=== PATIENT | female | born 1935 | race Two or more races ===

== ENCOUNTER 2022-05-14 08:39 | Outpatient (CLI) | payer MEDICARE, OTHER, SELFPAY ==
[2022-05-14 18:40] LABS: Alanine Aminotransferase 38 U/L (6-35); Albumin Level 4.3 g/dL (3.5-5.1); Alkaline Phosphatase 70 U/L (38-126); Anion Gap 2 mmol/L (8-16); Aspartate Amino Transferase 52 U/L (14-36); Bilirubin,Total 1.4 mg/dL (0.2-1.3); Blood Urea Nitrogen 14 mg/dL (7-17); Calcium 9.4 mg/dL (8.4-10.2); Carbon Dioxide 36 mmol/L (22-30); Chloride 104 mmol/L (98-107); Cholesterol 237 mg/dL (0-200); Estimated Glomerular Filt Rate > 60; Glucose 90 mg/dL (65-110); HDL Direct 84 mg/dL; Potassium 4.6 mmol/L (3.4-5.0); Sodium 142 mmol/L (137-145); Triglycerides 129 mg/dL (<150)
[2022-05-14 18:43] LABS: Basophils Absolute Auto 0.1 K/mm3 (0.0-0.1); Basophils Percent Auto 1.2 % (0.2-1.2); Eosinophils Absolute Auto 0.1 K/mm3 (0-0.3); Eosinophils Percent Auto 1.4 % (0-4.4); Hematocrit 45.7 % (37.0-47.0); Hemoglobin 14.5 g/dL (12.0-15.0); Immature Granulocyte Absolute 0.01 K/mm3 (0.00-0.031); Immature Granulocyte Percent A 0.2 % (0-0.5); Lymphocytes Absolute Auto 1.62 K/mm3 (0.9-3.2); Lymphocytes Percent Auto 38.4 % (18.3-44.2); Mean Corpuscular HGB Conc 31.7 g/dl (32-36); Mean Corpuscular Hemoglobin 30.8 pg (26-34); Mean Platelet Volume 11.7 fl (7.4-10.4); Monocytes Absolute Auto 0.4 K/mm3 (0.1-0.6); Monocytes Percent Auto 9.5 % (2.6-8.5); Neutrophils Absolute Auto 2.1 K/mm3 (1.3-6.7); Neutrophils Percent Auto 49.3 % (45.5-73.1); Platelet Count Result 129 k/mm3 (150-375); Red Blood Count 4.71 M/mm3 (4.2-5.4); Red Cell Distribution Width 13.1 % (11.5-14.5); White Blood Count 4.2 K/mm3 (4.5-10.0)
[2022-05-14 18:52] LABS: LDL Cholesterol Direct 95 mg/dL
[2022-05-14 19:16] LABS: Vitamin D 25 Hydroxy 46.2 ng/mL
[2022-05-15 08:38] LABS: Free T4 Free Thyroxine Reflex 0.62 ng/dL (0.78-2.19)
== END 2022-05-14 08:40 | disposition home or self-care (01) ==
LOC: ANHGOSHLAB 08:41
PROVIDERS: PCP Family Medicine; Visit Provider Family Medicine
DX: E78.5 Hyperlipidemia, unspecified (principal); I10 Essential (primary) hypertension; E55.9 Vitamin D deficiency, unspecified; E53.8 Deficiency of other specified B group vitamins; F41.9 Anxiety disorder, unspecified
CPT/HCPCS: 36415; 80053; 80061; 82306; 82607; 84439; 84443; 85025

== ENCOUNTER 2022-07-11 14:09 | Outpatient (CLI) | payer MEDICARE, OTHER, SELFPAY ==
[2022-07-11 15:22] LABS: Alanine Aminotransferase 37 U/L (6-35); Albumin Level 4.2 g/dL (3.5-5.1); Alkaline Phosphatase 58 U/L (38-126); Anion Gap 5 mmol/L (8-16); Aspartate Amino Transferase 51 U/L (14-36); Bilirubin,Total 0.9 mg/dL (0.2-1.3); Blood Urea Nitrogen 14 mg/dL (7-17); Calcium 8.5 mg/dL (8.4-10.2); Carbon Dioxide 31 mmol/L (22-30); Chloride 105 mmol/L (98-107); Estimated Glomerular Filt Rate > 60; Glucose 72 mg/dL (65-110); Potassium 3.9 mmol/L (3.4-5.0); Sodium 141 mmol/L (137-145)
[2022-07-15 05:43] LABS: Thyroid Peroxidase Antibodies 1668 IU/mL (<9)
[2022-07-16 05:56] LABS: Triiodothyronine T3 Free 2.3 pg/mL (2.3-4.2)
== END 2022-07-11 14:10 | disposition home or self-care (01) ==
PROVIDERS: PCP Family Medicine; Visit Provider Internal Medicine Endocrinology, Diabetes & Metabolism
DX: E03.9 Hypothyroidism, unspecified (principal); F41.9 Anxiety disorder, unspecified; R74.8 Abnormal levels of other serum enzymes; E04.9 Nontoxic goiter, unspecified; I47.1 Supraventricular tachycardia
CPT/HCPCS: 36415; 80053; 84439; 84443; 84481; 86376

== ENCOUNTER 2022-09-01 08:31 | Outpatient (CLI) | payer MEDICARE, OTHER, SELFPAY ==
--- NOTE | 2022-09-01 | ECHOL_ITS ---
Patient Info Name: Juan A Bolanos Age: 87 years : 1935 Gender: Female Ht: 62 in Wt: 115 lbs BSA: 1.51 m2 HR: 69 bpm BP: 180 / 100 mmHg Technical Quality: Good Exam Date: 09/01/2022 9:11 AM Exam Location: [facility] Patient Status: Outpatient Admit Date: 09/01/2022 Staff Ordering Physician: Lora Ruvalcaba MD Screening Tech: Starla De Leon RDCS Attending Provider: Lora Ruvalcaba MD Exam Type: CA echo limited Study Info Indications - EVALUATE EJECTION FRACTION I10 - Essential (primary) hypertension Limited two-dimensional transthoracic echocardiogram is performed. Summary 1. Limited echocardiogram to assess ejection fraction. 2. Left ventricular chamber dimension is normal. 3. Left ventricular systolic function is normal, estimated at 65-70%. 4. The left ventricular diastolic function is indeterminate as it was not assessed.. Left Ventricle The left ventricular diastolic function is indeterminate as it was not assessed.. Limited echocardiogram to assess ejection fraction. Left ventricular chamber dimension is normal. Left ventricular systolic function is normal, estimated at 65-70%. Ventricles Name Value Normal LV Dimensions 2D/MM IVS Diastolic Thickness (2D) 0.9 cm 0.6-1.0 IVS Diastole Thickness (MM) 0.4 cm 0.6-0.9 LVID Diastole (2D) 4.0 cm 3.8-5.2 LVID Diastole (MM) 4.4 cm 3.8-5.2 LVIW Diastolic Thickness (2D) 0.9 cm 0.6-0.9 LVIW Diastolic Thickness (MM) 0.7 cm 0.6-0.9 LVID Systole (2D) 2.6 cm 2.2-3.5 LVID Systole (MM) 2.5 cm 2.2-3.5 LV Mass (2D Cubed) 114.06 g 67.00-162.00 LV Mass Index (2D Cubed) 75 g/m2 43-95 Relative Wall Thickness (2D) 0.45 LV Mass (MM Cubed) 73.02 g 67.00-162.00 LV Mass Index (MM Cubed) 48 g/m2 43-95 Relative Wall Thickness (MM) 0.34 LV Fractional Shortening/Ejection Fraction 2D/MM LV Fractional Shortening (2D) 37 % 27-45 LV Fractional Shortening (MM) 43 % 27-45 LV EF (MM Teicholz) 74 % 54-74 LV EF (2D Teicholz) 67 % 54-74 LV Diastolic Volume (4C MOD) 43 ml LV EF (4C MOD) 66 % LV Diastolic Volume (2C MOD) 42 ml LV EF (2C MOD) 57 % LV Diastolic Volume (BP MOD) 43 ml 46-106 LV Diastolic Volume Index (BP MOD) 28 ml/m2 29-61 LV Systolic Volume (BP MOD) 16 ml 14-42 LV Systolic Volume Index (BP MOD) 11 ml/m2 8-24 LV EF (BP MOD) 61 % 54-74 LV Diastolic Length (4C) 6.1 cm LV Systolic Length (4C) 5.2 cm LV Stroke Volume (4C MOD) 28 ml EchoPAC Name Value Normal
== END 2022-09-01 08:32 | disposition home or self-care (01) ==
LOC: ANHCARD 08:31
PROVIDERS: PCP Family Medicine; Visit Provider Internal Medicine Endocrinology, Diabetes & Metabolism
DX: Z13.6 Encounter for screening for cardiovascular disorders (principal); I10 Essential (primary) hypertension
CPT/HCPCS: 93308

== ENCOUNTER 2023-02-05 11:26 | Outpatient (CLI) | payer MEDICARE, OTHER, SELFPAY ==
[2023-02-05 16:48] LABS: Alanine Aminotransferase 34 U/L (6-35); Alkaline Phosphatase 72 U/L (38-126); Anion Gap 10 mmol/L (8-16); Aspartate Amino Transferase 69 U/L (14-36); Blood Urea Nitrogen 14 mg/dL (7-17); Calcium 9.3 mg/dL (8.4-10.2); Carbon Dioxide 24 mmol/L (22-30); Chloride 108 mmol/L (98-107); Estimated Glomerular Filt Rate > 60; Glucose 126 mg/dL (65-110); Potassium 3.6 mmol/L (3.4-5.0); Sodium 142 mmol/L (137-145)
== END 2023-02-05 11:27 | disposition home or self-care (01) ==
LOC: ANHWCLAB 11:27
PROVIDERS: PCP Family Medicine; Visit Provider Internal Medicine Endocrinology, Diabetes & Metabolism
DX: I10 Essential (primary) hypertension (principal); I47.10 Supraventricular tachycardia, unspecified; E03.9 Hypothyroidism, unspecified
CPT/HCPCS: 36415; 80053; 84439; 84443

== ENCOUNTER 2023-03-16 10:27 | Outpatient (CLI) | payer MEDICARE, OTHER, SELFPAY ==
[2023-03-16 16:03] LABS: Free T4 Free Thyroxine 0.64 ng/mL (0.78-2.19)
== END 2023-03-16 10:28 | disposition home or self-care (01) ==
LOC: ANHWCLAB 10:28
PROVIDERS: PCP Family Medicine; Visit Provider Nurse Practitioner Family
DX: E03.9 Hypothyroidism, unspecified (principal)
CPT/HCPCS: 36415; 84439; 84443

== ENCOUNTER 2023-05-28 09:51 | Outpatient (CLI) | payer MEDICARE, OTHER, SELFPAY ==
[2023-05-28 13:44] LABS: Basophils Percent Auto 0.9 % (0.2-1.2); Eosinophils Absolute Auto 0.1 K/mm3 (0-0.3); Eosinophils Percent Auto 1.6 % (0-4.4); Hematocrit 41.3 % (37.0-47.0); Hemoglobin 13.1 g/dL (12.0-15.0); Immature Granulocyte Absolute 0.01 K/mm3 (0.00-0.031); Immature Granulocyte Percent A 0.2 % (0-0.5); Lymphocytes Absolute Auto 1.22 K/mm3 (0.9-3.2); Lymphocytes Percent Auto 28.3 % (18.3-44.2); Mean Corpuscular HGB Conc 31.7 g/dl (32-36); Mean Corpuscular Hemoglobin 31.3 pg (26-34); Mean Corpuscular Volume 98.6 fl (80-100); Mean Platelet Volume 11.8 fl (7.4-10.4); Monocytes Absolute Auto 0.4 K/mm3 (0.1-0.6); Monocytes Percent Auto 8.1 % (2.6-8.5); Neutrophils Absolute Auto 2.6 K/mm3 (1.3-6.7); Neutrophils Percent Auto 60.9 % (45.5-73.1); Platelet Count Result 115 k/mm3 (150-375); Red Blood Count 4.19 M/mm3 (4.2-5.4); White Blood Count 4.3 K/mm3 (4.5-10.0)
[2023-05-28 14:43] LABS: Vitamin D 25 Hydroxy 31.1 ng/mL
[2023-05-28 19:26] LABS: Alanine Aminotransferase 29 U/L (6-35); Albumin Level 4.4 g/dL (3.5-5.1); Alkaline Phosphatase 67 U/L (38-126); Anion Gap 7 mmol/L (4-12); Aspartate Amino Transferase 64 U/L (14-36); Bilirubin,Total 1.1 mg/dL (0.2-1.3); Blood Urea Nitrogen 13 mg/dL (7-17); Calcium 9.4 mg/dL (8.4-10.2); Carbon Dioxide 28 mmol/L (22-30); Chloride 109 mmol/L (98-107); Cholesterol 190 mg/dL (0-200); Estimated Glomerular Filt Rate > 60; Glucose 93 mg/dL (65-110); HDL Direct 69 mg/dL; Potassium 4.7 mmol/L (3.4-5.0); Sodium 144 mmol/L (137-145); Triglycerides 97 mg/dL (<150)
[2023-05-28 19:36] LABS: LDL Cholesterol Direct 91 mg/dL
== END 2023-05-28 09:52 | disposition home or self-care (01) ==
LOC: ANHGOSHLAB 09:53
PROVIDERS: PCP Family Medicine; Visit Provider Family Medicine
DX: E78.5 Hyperlipidemia, unspecified (principal); I10 Essential (primary) hypertension; E53.8 Deficiency of other specified B group vitamins; E55.9 Vitamin D deficiency, unspecified
CPT/HCPCS: 36415; 80053; 80061; 82306; 82607; 85025

== ENCOUNTER 2023-10-02 10:19 | Outpatient (CLI) | payer MEDICARE, OTHER, SELFPAY ==
[2023-10-02 11:59] LABS: Free T4 Free Thyroxine 0.78 ng/mL (0.78-2.19); Vitamin D 25 Hydroxy 40.9 ng/mL
== END 2023-10-02 10:20 | disposition home or self-care (01) ==
PROVIDERS: PCP Family Medicine; Visit Provider Internal Medicine Endocrinology, Diabetes & Metabolism
DX: E03.9 Hypothyroidism, unspecified (principal); E55.9 Vitamin D deficiency, unspecified
CPT/HCPCS: 36415; 82306; 84439; 84443

== ENCOUNTER 2023-12-03 09:33 | Outpatient (CLI) | payer MEDICARE, OTHER, SELFPAY ==
[2023-12-03 19:16] LABS: Alanine Aminotransferase 37 U/L (6-35); Albumin Level 4.3 g/dL (3.5-5.1); Alkaline Phosphatase 71 U/L (38-126); Anion Gap 10 mmol/L (4-12); Aspartate Amino Transferase 72 U/L (14-36); Bilirubin,Total 1.4 mg/dL (0.2-1.3); Blood Urea Nitrogen 13 mg/dL (7-17); Calcium 8.8 mg/dL (8.4-10.2); Carbon Dioxide 27 mmol/L (22-30); Chloride 105 mmol/L (98-107); Estimated Glomerular Filt Rate > 60; Glucose 88 mg/dL (65-110); Potassium 3.7 mmol/L (3.4-5.0); Sodium 142 mmol/L (137-145)
== END 2023-12-03 09:34 | disposition home or self-care (01) ==
LOC: ANHGOSHLAB 09:35
PROVIDERS: Internal Medicine Endocrinology, Diabetes & Metabolism; PCP Family Medicine; Visit Provider Family Medicine
DX: F41.9 Anxiety disorder, unspecified (principal); E03.9 Hypothyroidism, unspecified; I10 Essential (primary) hypertension; R74.01 Elevation of levels of liver transaminase levels
CPT/HCPCS: 36415; 80053; 84439; 84443

== ENCOUNTER 2024-06-14 09:23 | Outpatient (CLI) | payer MEDICARE, OTHER, SELFPAY ==
--- OUTSIDE RECORDS SUMMARY | 2024-06-14 09:55 | XMS_ITS | Clinical Summary ---
Author Organization [facility] [employer] Address [address] [place] [address] Care Team Providers Care Dress Fitter Name Role Phone [address] Primary Care Prov ider Source Comments [facility],non-owned Affiliates and Associated Physician Practices is amultiple site organization consisting of ambulatory clinics and hospital sitesin [place], [place], [place] and [place]. This disclosure is being madepursuant to the Care Everywhere program and may not contain all information available regarding this patient. Last updated 17.[facility] [employer] Allergies Active Allergy Reactions Criticality Noted Date Comments Penicillins Rash Medium 06/06/2021 Medications * Be aware that medications may not be up to date on this document. Alwaysverify current medications with the patient. acetaminophen (TYLENOL) 500 MG tablet Take 2 (two) tablets by mouth 3 times daily Maximum allowable Acetaminophen amount = 4 Grams (4000 mg) / 24 hours. 40 tablet 2 Active lidocaine (LIDODERM) 5 % patch Apply 1 (one) patch to skin once daily 10 patch 2 Active Family History Medical History Relation Name Comments Allergy (Severe) Neg Hx CVA Neg Hx Cancer Neg Hx Cancer - Skin, Melanoma Neg Hx Cancer - Skin, Non Melanoma Neg Hx Eczema Neg Hx Hemophilia Neg Hx Psoriasis Neg Hx Rashes/Skin Problems Neg Hx Social History Tobacco Use Types Packs/Day Years Used Date Smoking Tobacco: Some Days Cigarettes Smokeless Tobacco: Never Alcohol Use Standard Drinks/Week Comments Not Currently 0 (1 standard drink = 0.6 oz pur e alcohol) AUDIT-C Answer Date Recorded Q1: How often do you have a drink containing alcohol? Never 06/06/2021 Q2: How many drinks containi ng alcohol do you have on a typical day when you are drinking? Patient does not drink Q3: How often do you have si x or more drinks on one occasion? Never 06/06/2021 Comments No Sex and Gender Information Value Date Recorded Sex Assigned at Not on file Legal Sex Female 7:19 PM [employer] Gender Identity Not on file Sexual Orientation Not on file Last Filed Vital Signs Vital Sign Reading Time Taken Comments Blood Pressure 170/75 06/06/2021 7:33 AM CDT Pulse 68 06/06/2021 7:33 AM CDT Temperature 36.2 C (97.1 F) 06/06/2021 7:33 AM CDT Respiratory Rate 18 06/06/2021 7:33 AM CDT Oxygen Saturation 100% 06/06/2021 7:33 AM CDT Inhaled Oxygen Concentration - - Weight 52.2 kg (115 lb) 06/06/2021 7:33 AM CDT Height 160 cm (5' 3 ) 06/06/2021 7:33 AM CDT Body Mass Index 20.37 06/06/2021 7:33 AM CDT Plan of Treatment Health Maintenance Due Date Last Done Comments BONE DENSITY TESTING 1935 MEDICARE AWV 12 MONTHS 1935 DTAP/TDAP/TD VACCINES (1 - Tdap) 1954 PNEUMOCOCCAL VACCINE 50+ (1 of 2 - PCV) 1954 ZOSTER VACCINE (1 of 2) 1985 Respiratory Syncytial Virus (RSV) Vaccine Pt: or over 60 yrs (1 - 1-dose 75+ series) 2010 COVID-19 VACCINE ( - season) 2023 02/18/2021, 04/24/2020, 04/03/2020 DEPRESSION SCREENING 02/10/2024 INFLUENZA VACCINE (Season Ended) 2024 11/12/2020, 11/11/2019, 12/22/2018, Additional history exists HEPATITIS B VACCINE Aged Out No longe r eligible based on patient's age to complete this topic HIB VACCINE Aged Out No longer eligi ble based on patient's age to complete this topic HPV VACCINE Aged Out No longer eligi ble based on patient's age to complete this topic MENINGOCOCCAL (Group B) VACCINE SHARED DECISION-MAKING Aged Out No longer eligible based on patient's age to complete this topic MENINGOCOCCAL GROUPS A/C/Y/W VACCINE Aged Out No longer eligible based on patient's age to complete this topic Insurance MEDICARE [facility] MEDICARE [employer] Care Teams Dress Fitter Relationship Specialty Start Date End Date [facility] [address] [place] [address] PCP - General Family Medicine 06/06/21
--- OUTSIDE RECORDS SUMMARY | 2024-06-14 09:55 | XMS_ITS | Continuity of Care Document ---
Author Name [facility] Organization [facility] Care Team Providers Care Certified Anesthesiologist Assistant Name Role Phone [facility] Unavailable Unavailable Problems Combined list of problems from Department of Defense and Veterans Affairs facilities. It does not include entries that were removed or entered in error. 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 DoD PRESBYOPIA Active Condition DoD ASTIGMATISM Active Condition DoD REFRACTIVE ERROR - HYPERMETROPIA Active Condition DoD deep pain in the right hip Active Condition DoD blurry vision Active Condition DoD SINGH'S PALSY Active Condition DoD SINUSITIS ACUTE Inactive Condition DoD itching (pruritus) Inactive Condition Do D VITAMIN D DEFICIENCY Active Condition DoD HYPERTENSION (SYSTEMIC) Active Condition DoD joint pain, localized in the elbow Active Condition DoD sweating heavily at night Active Condition DoD SUBLUXATION ULNAR NERVE AT ELBOW Active Condition DoD limb pain Active Condition DoD Nodules - Subcutaneous Active Condition DoD chest pain or discomfort Active Condition DoD multiple environmental allergies Active Condition DoD MUSCLE SPASM Inactive Condition DoD OSTEOARTHRITIS Active Condition DoD CONSTIPATION Inactive Condition DoD ALLERGIC RHINITIS Active Condition DoD EUSTACHIAN TUBE DYSFUNCTION Inactive Condition DoD headache Inactive Condition DoD NECK STRAIN Inactive Condition DoD X-Ray Active Condition DoD NORMAL EXAMINATION Active Condition DoD visit for: issue repeat prescription Active Condition DoD CERVICALGIA Active Condition DoD CYSTITIS ACUTE Inactive Condition DoD Laboratory Studies Inactive Condition Do D CYSTITIS Inactive Condition DoD visit for: administrative purpose Inactive Condition DoD anxiety Active Condition DoD DEPRESSION Active Condition DoD Preventive Medicine Estab Patient Checkup Adult Over 64 Inactive Condition DoD OSTEOPOROSIS Active Condition DoD PALPITATIONS Active Condition DoD ATYPICAL CHEST PAIN Active Condition DoD ESSENTIAL HYPERTENSION Active Condition DoD struck accidentally Active Condition DoD HEAD INJURY Inactive Condition DoD HYPOTHYROIDISM Active Condition DoD ANXIETY DISORDER NOS Active Condition DoD ACROCHORDON Active Condition DoD visit for: routine eye exam Inactive Condition grease splash to L eye no damage DoD Need For Vaccination Pneumococcal Inactive Condition [facility] NORMAL ROUTINE HISTORY AND PHYSICAL Inactive Condition DoD Medications Combined list of outpatient medications from Department of Defense and Veterans Affairs facilities.Medications provided include 1) outpatient medications from the last 15 months, and 2) patient-reported medications. Medication Details Route Status Patient Instructions Prescription Expires Prescription Number Last Dispense Date Ordering Provider Order Date Order Qty Source ESCITALOPRA M OXALATE (escitalopr am oxalate), 5 MG, TABLET, ORAL, [facility], 100 ea. BOTTLE Active [id number] 2023 90 Pharmac y Data Transac tion Service Facilit y LEVOTHYROXI NE SODIUM (levothyrox ine sodium), 75 MCG, TABLET, ORAL, AMNEAL PHARMACE, 1000 ea. BOTTLE Cancele d [id number] : 2023 0 Pharmac y Data Transac tion Service Facilit y Allergies, Adverse Reactions, Alerts Combined list of allergies from Department of Defense and Veterans Affairs facilities. It does not include entries that were removed or entered in error. Substance Category Reaction Severity Reaction type Status Date Reported Comments Source BONIVA (IBANDRONATE SODIUM) Drug allergy (disorder) Unknown active 0 [facility] [place] ibandronate Propensity to adverse reactions to drug Unknown Active 0 Unknown Organizati on Immunizations Combined list of available immunizations from the Department of Defense and Veterans Affairs facilities. Immunization Series Date Given Administered By Site Reaction Lot Number CVX Code Drug Grinder Status Comments Source pneumococcal 20-valent conjugate vaccine 2023 ZACKARY THAKKAR Shoul iwona, left (delt oid) [id number] Pfizer Inc complet ed pneumococ toyin 20-valent conjugate vaccine 08/18/23 Given 0055C-3 75th [facility] Nishant influenza, injectable, quadrivalent- pf 2017 zzLef t Arm [id number] Seqirus complet ed influenza , injectabl e, quadrival ent-pf 11/17/17 Given Ambulat ory Pharmac y influenza, injectable, quadrivalent- pf 2017 [id number] Seqirus complet ed influenza , injectabl e, quadrival ent-pf 11/17/17 Given Ambulat ory Pharmac y Influenza, injectable, quadrivalent, preservative free 1 2017 Unknown, Provider [id number] 150 Seqirus (SEQ) complet ed Influenza , injectabl e, quadrival ent, preservat tessa free DoD influenza, injectable, quadrivalent- pf 2016 zzLef t Arm [id number] 150 GlaxoSmithKli ne complet ed influenza , injectabl e, quadrival ent-pf 11/26/16 Given Ambulat ory Pharmac y Influenza, injectable, quadrivalent, preservative free 1 2016 Unknown, Provider [id number] SmithKline (SKB) complet ed Influenza , injectabl e, quadrival ent, preservat tessa free DoD tetanus, diphtheria, acellular pertu is 2015 zzLef t Arm [id number] 115 GlaxoSmithKli ne complet ed tetanus, diphtheri a, acellular pertussis 03/29/15 Given Ambulat ory Pharmac y tetanus, diphtheria, acellular pertu is 2015 [id number] GlaxoSmithKli ne complet ed tetanus, diphtheri a, acellular pertussis 03/29/15 Given Ambulat ory Pharmac y tetanus toxoid, reduced diphtheria toxoid, and acellular pertu is vaccine, adsorbed 1 2015 Unknown, Provider [id number] SmithKline (SKB) complet ed tetanus toxoid, reduced diphtheri a toxoid, and acellular pertussis vaccine, adsorbed DoD influenza, injectable, quadrivalent- pf 2014 zzLef t Arm [id number] 150 GlaxoSmithKli ne complet ed influenza , injectabl e, quadrival ent-pf 12/05/14 Given Ambulat ory Pharmac y influenza, injectable, quadrivalent- pf 2014 [id number] 150 GlaxoSmithKli ne complet ed influenza , injectabl e, quadrival ent-pf 12/05/14 Given Ambulat ory Pharmac y Influenza, injectable, quadrivalent, preservative free 1 2014 Unknown, Provider [id number] 150 SmithKline (SKB) complet ed Influenza , injectabl e, quadrival ent, preservat tessa free DoD influenza, seasonal, injectable-pf 2013 zzLef t Arm [id number] 140 Novartis Pharmaceutica complet ed influenza , seasonal, injectabl e-pf 11/11/13 Given Ambulat ory Pharmac y pneumococcal 13-valent conjugate (PCV13) 2013 [facility] Arm [id number] 133 [facility] complet ed pneumococ toyin 13-valent conjugate (PCV13) 11/11/13 Given Ambulat ory Pharmac y influenza, seasonal, injectable-pf 2013 [id number] 140 Novartis Edoometica complet ed influenza , seasonal, injectabl e-pf 11/11/13 Given Ambulat ory Pharmac y pneumococcal 13-valent conjugate (PCV13) 2013 [id number] 133 [facility] complet ed pneumococ toyin 13-valent conjugate (PCV13) 11/11/13 Given Ambulat ory Pharmac y pneumococcal conjugate vaccine, 13 valent 1 2013 Unknown, Provider [id number] [facility] ([facility]) complet ed pneumococ toyin conjugate vaccine, 13 valent DoD Influenza, seasonal, injectable, preservative free 1 2013 Unknown, Provider [id number] 140 Novartis Pharmaceutica l Milli. (NOV) complet ed Influenza , seasonal, injectabl e, preservat tessa free DoD influenza, seasonal, injectable-pf [facility] [id number] 140 sanofi pasteur complet ed influenza , seasonal, injectabl e-pf 11/26/12 Given Ambulat ory Pharmac y Influenza, seasonal, injectable, preservative free 12 2012 Unknown, Provider [id number] 140 Sanofi Pasteur ([facility]) complet ed Influenza , seasonal, injectabl e, preservat tessa free DoD influenza, seasonal, injectable 2011 zzLef t Arm [id number] 141 sanofi pasteur complet ed influenza , seasonal, injectabl e 11/13/11 Given Ambulat ory Pharmac y influenza, seasonal, injectable 2011 [id number] 141 sanofi pasteur complet ed influenza , seasonal, injectabl e 11/13/11 Given Ambulat ory Pharmac y Influenza, seasonal, injectable 11 2011 Unknown, Provider [id number] 141 Sanofi Pasteur ([facility]) complet ed Influenza , seasonal, injectabl e DoD influenza, seasonal, injectable 2010 zzLef t Arm [id number] 141 sanofi pasteur complet ed influenza , seasonal, injectabl e 11/01/10 Given Ambulat ory Pharmac y Influenza, seasonal, injectable 10 2010 Unknown, Provider [id number] 141 Sanofi Pasteur ([facility]) complet ed Influenza , seasonal, injectabl e DoD tetanus, diphtheria, acellular pertu is [facility] [id number] 115 GlaxoSmithKli ne complet ed tetanus, diphtheri a, acellular pertussis 05/08/10 Given Ambulat ory Pharmac y tetanus, diphtheria, acellular pertu is 2010 [id number] 115 GlaxoSmithKli ne complet ed tetanus, diphtheri a, acellular pertussis 05/08/10 Given Ambulat ory Pharmac y tetanus toxoid, reduced diphtheria toxoid, and acellular pertu is vaccine, adsorbed 1 2010 Unknown, Provider [id number] 115 [facility] ([facility]) complet ed tetanus toxoid, reduced diphtheri a toxoid, and acellular pertussis vaccine, adsorbed DoD influenza virus vaccine,split 2009 zzLef t Arm [id number] 15 [facility] complet ed influenza virus vaccine,s plit 01/01/10 Given Ambulat ory Pharmac y influenza virus vaccine,split 2009 [id number] 15 [employer] complet ed influenza virus vaccine,s plit 01/01/10 Given Ambulat ory Pharmac y influenza virus vaccine, split virus (incl. purified surface antigen)-reti red CODE 1 2009 Unknown, Provider [id number] 15 [employer] (CS) complet ed influenza virus vaccine, split virus (incl. purified surface antigen)- retired CODE DoD influenza virus vaccine,split 2008 zzLef t Arm [id number] 15 sanofi pasteur complet ed influenza virus vaccine,s plit 11/01/08 Given Ambulat ory Pharmac y influenza virus vaccine, split virus (incl. purified surface antigen)-reti red CODE 1 2008 Unknown, Provider [id number] 15 Sanofi Pasteur ([facility]) complet ed influenza virus vaccine, split virus (incl. purified surface antigen)- retired CODE DoD influenza virus vaccine,split 2007 zzLef t Arm [id number] 15 sanofi pasteur complet ed influenza virus vaccine,s plit 01/13/08 Given Ambulat ory Pharmac y influenza virus vaccine,split 2007 [id number] 15 sanofi pasteur complet ed influenza virus vaccine,s plit 01/13/08 Given Ambulat ory Pharmac y influenza virus vaccine, split virus (incl. purified surface antigen)-reti red CODE 1 2007 Unknown, Provider [id number] 15 Sanofi Pasteur ([facility]) complet ed influenza virus vaccine, split virus (incl. purified surface antigen)- retired CODE DoD influenza virus vaccine,split 2006 [facility] [id number] 15 GlaxoSmithKli ne complet ed influenza virus vaccine,s plit 12/11/06 Given Ambulat ory Pharmac y influenza virus vaccine,split 2006 [id number] 15 GlaxoSmithKli ne complet ed influenza virus vaccine,s plit 12/11/06 Given Ambulat ory Pharmac y influenza virus vaccine, split virus (incl. purified surface antigen)-reti red CODE 1 2006 Unknown, Provider [id number] 15 [facility] ([facility]) complet ed influenza virus vaccine, split virus (incl. purified surface antigen)- retired CODE [facility] influenza virus vaccine,split 2005 [facility] Arm [id number] 15 GlaxoSmithKli ne complet ed influenza virus vaccine,s plit 01/12/06 Given Ambulat ory Pharmac y influenza virus vaccine, split virus (incl. purified surface antigen)-reti red CODE 1 2005 Unknown, Provider [id number] 15 [employer] ([facility]) complet ed influenza virus vaccine, split virus (incl. purified surface antigen)- retired CODE [facility] pneumococcal polysaccharid e, 23 valent 2005 [facility] Arm [id number] 33 Merck & Company Inc complet ed pneumococ toyin polysacch aride, 23 valent 03/06/05 Given Ambulat ory Pharmac y pneumococcal polysaccharid e, 23 valent 2005 [id number] 33 Merck & Company Inc complet ed pneumococ toyin polysacch aride, 23 valent 03/06/05 Given Ambulat ory Pharmac y pneumococcal polysaccharid e vaccine, 23 valent 1 2005 Unknown, Provider [id number] 33 Merck (MSD) complet ed pneumococ toyin polysacch aride vaccine, 23 valent DoD influenza virus vaccine,split 2004 zzLef t Arm [id number] 15 sanofi pasteur complet ed influenza virus vaccine,s plit 12/23/04 Given Ambulat ory Pharmac y influenza virus vaccine,split 2004 [id number] 15 sanofi pasteur complet ed influenza virus vaccine,s plit 12/23/04 Given Ambulat ory Pharmac y influenza virus vaccine, split virus (incl. purified surface antigen)-reti red CODE 1 2004 Unknown, Provider [id number] 15 Sanofi Pasteur ([facility]) complet ed influenza virus vaccine, split virus (incl. purified surface antigen)- retired CODE DoD influenza virus vaccine,split 2003 zzLef t Arm [id number] 15 sanofi pasteur complet ed influenza virus vaccine,s plit 01/11/04 Given Ambulat ory Pharmac y influenza virus vaccine, split virus (incl. purified surface antigen)-reti red CODE 1 2003 Unknown, Provider [id number] 15 Sanofi Pasteur ([facility]) complet ed influenza virus vaccine, split virus (incl. purified surface antigen)- retired CODE DoD influenza virus vaccine, whole virus 2000 zzLef t Arm [id number] 16 [employer] complet ed influenza virus vaccine, whole virus 03/06/00 Given Ambulat ory Pharmac y influenza virus vaccine, whole virus 2000 [id number] 16 [employer] complet ed influenza virus vaccine, whole virus 03/06/00 Given Ambulat ory Pharmac y influenza virus vaccine, whole virus 1 2000 Unknown, Provider [id number] 16 [facility] complet ed influenza virus vaccine, whole virus DoD influenza virus vaccine, whole virus 1998 [id number] 16 [facility] influenza virus vaccine, whole virus 11/24/98 Given Ambulat ory Pharmac y influenza virus vaccine, whole virus 1 1998 Unknown, Provider [id number] 16 [employer] (CON) complet ed influenza virus vaccine, whole virus DoD Encounters Combined list of: 1) Encounters from Department of Veterans Affairs facilities going backup to the last 18 months, not all VA inpatient encounters are included; 2) Encounters from the Department of Defense facilities going backup to 280 months. Location Location Details Encounter Type Encounter Number Reason For Visit Attending Provider ADM Date DC Date Status Disposition Source [address] [place] [address] Nishant [place]ARATE [place] [place] OUTPATIENT [id number] yearly physica l, breast exam, cough HARMONY, ASSY 03/06 Released w/o Limitations [facility] Nishant [facility]ARATE [place] [place]) Medical Group Nishant ZARATE [place] [place] OUTPATIENT [id number] well woman/p MAE Pulliam 03/13 Released w/o Limitations [facility] Nishant ZARATE [place]) Medical Group Nishant ZARATE [place] [place]Opt [place] OUTPATIENT [id number] POSS GREASE BURN LEFT EYE CARISSA ESPINO 05/06 Released w/o Limitations [facility] Nishant ZARATE [place] Medical [facility] Nishant ZARATE [place] [place] OUTPATIENT [id number] moles HARMONY, ASSY 07/31 Released w/o Limitations [facility] Nishant ZARATE [place]) Medical Group Nishant [facility]ARATE [place] [place] TELE CONSULT [id number] TSH HARMONY, ASSY 08/05 Medical Group Nishant ZARATE [place] [facility] Nishant ZARATE [facility] ) OUTPATIENT [id number] tender spot on head TANO, STEPHEN L 09/25 Released w/o Limitations [facility] Nishant ZARATE [place]) Medical Group Nishant ZARATE [place] [place] OUTPATIENT [id number] fol MRI BARC, STEPHEN L 11/06 Released w/o Limitations [facility] Nishant ZARATE [place]) Medical Group Nishant ZARATE [place] [place] OUTPATIENT [id number] f/u REINA Connolly 01/19 Released w/o Limitations [facility] Nishant ZARATE [place]) Medical Group Nishant ZARATE [place] [place] OUTPATIENT [id number] brittany HASSAN KENZIE PIERRE Mark 03/02 Released w/o Limitations [facility] Nishant ZARATE [place]m) Medical Group Nishant ZARATE [place] OUTPATIENT [id number] new patient needs chart DOC GARG 03/28 Released w/o Limitations [facility] Nishant ZARATE [place]) Medical Group Nishant ZARATE [place] OUTPATIENT [id number] f/u DOC GARG 04/13 Released w/o Limitations [facility] Nishant ZARATE [place]) Medical Group Nishant ZARATE [place] OUTPATIENT [id number] f/u DOC GARG 05/05 Released w/o Limitations [facility] Nishant ZARATE [place]) [facility] Nishant ZARATE [place] [place] TELE CONSULT [id number] Results from cardiol ogy STEPHEN FREEDMAN L 05/10 Medical Group Nishant ZARATE [place]) Medical Group Nishant ZARATE [place] [place] [place] OUTPATIENT [id number] fol heart TANO STEPHEN L 05/24 Released w/o Limitations [facility] Nishant ZARATE [place]) Medical Group Nishant ZARATE [place] [place] [place] OUTPATIENT [id number] possibl e uti GOLDEN, [facility] CPT 08/30 Released w/o Limitations [facility] Nishant ZARATE [place]) Medical Group Nishant ZARATE [place] [place] TELE CONSULT [id number] Labs GOLDEN, TIFFANY CPT 08/31 Medical Group Nishant ZARATE [place]m) Medical Group Nishant ZARATE [place] [place] OUTPATIENT [id number] intermi tent stream when urinati ng - GOLDEN TIFFANY CPT 09/14 Released w/o Limitations [address] [place] [address] Group Nishant Padmini [facility] Intern[facility] Tm) [address] [place] [address] Nishant [facility])([facility] ) TELE CONSULT [id number] Rx refill NANYSTEPHEN TRUJILLO Mark 01/[address] [place] [address] Group Nishant [facility])([facility] Intern[facility] Medicin e Tm) [address] [place] [address] Nishant [facility])([facility] ) OUTPATIENT [id number] f/u med/lab s TANO STEPHEN L 02/12 Released w/o Limitations [address] [place] [address] Group Nishant Padmini [facility] Intern[facility] l Medicin e Tm) [address] [place] [address] Nishant [facility])([facility] ) TELE CONSULT [id number] New medicat ion causing side affects STEPHEN FREEDMAN 02/[address] [place] [address] Group Nishant [facility])([facility] Intern[facility] Medicin [facility] Tm) [address] [place] [address] Nishant [facility])([facility] ) TELE CONSULT [id number] RAD SCOTTY HAGER 02/[address] [place] [address] Group Nishant [facility])([facility] Intern[facility] l Medicin e Tm) [address] [place] [address] Nishant [facility])([facility] ) OUTPATIENT [id number] bodyach e and coughin g X 3 days AYAN FRANKSARATH CPT 03/16 Released w/o Limitations [address] [place] [address] Group Nishant [facility])([facility] Intern[facility] l Medicin e Tm) [facility] Medical [facility] Nishant [facility])([facility] ) TELE CONSULT [id number] Med Refill NANYSTEPHEN TRUJILLO Mark 05/[address] [place] [address] Group Nishant [facility])([facility] Intern[facility] l Medicin e Tm) [address] [place] [address] Nishant [facility])([facility] ) OUTPATIENT [id number] ear pain x 2 wks [id number] TANO STEPHEN L 06/07 Released w/o Limitations [address] [place] [address] Group Nishant [facility])([facility] cott Interna l Medicin e Tm) [facility] Nishant MCCONNELLB [place] [place] TELE CONSULT [id number] X-ra y Results NANYSTEPHEN TRUJILLO Mark 06/08 [facility] [employer] [facility]ishant B [place]) [facility] [employer] Nishant B [place] ) OUTPATIENT [id number] pain in right leg. IJEOMA AHN 10/26 Released w/o Limitations [facility] Nishant MCCONNELLB [place]) [facility] Nishant B [place] ) TELE CONSULT [id number] Lab results SCOTTY HAGER 10/31 Referred for Appointment [facility] Nishant [facility] [place] Tm) [facility] Nishant [facility])([facility] ) OUTPATIENT [id number] F/U on lab work IJEOMA AHN 11/02 Released w/o Limitations [facility] Nishant [facility] [place] Medicin [facility] Tm) [facility] Nishant [facility] [place] ) OUTPATIENT [id number] sore throat chest congest [id number] TIFFANY FRANKS CPT 02/20 Released w/o Limitations [facility] Nishant B [place] Medicin [facility] Tm) [facility] Nishant [facility] [place] ) TELE CONSULT [id number] BRANT RODRIGUEZ 02/21 Referred for Appointment 375 Medical Group Nishant B [facility]S cott Interna l Medicin e Tm) [facility] Medical Group [facility])(Car diology (MTF)) OUTPATIENT [id number] ekg MORENITA MANN I 03/08 Released w/o Limitations [employer] [facility]ant M[place]ONNELLB [place] ([place] [employer] [facility] B [facility])([facility] ) OUTPATIENT [id number] growth behind rt ear.... [id number] REINA BOBBY 05/08 Released w/o Limitations [employer] [facility] [place] Interna l Medicin e Tm) [facility] Medical [facility]ant ENEDINAB [place] ) TELE CONSULT [id number] rad result REINA BOBBY Jimbo 05/17 [facility] Medical Group Nishant MCCONNELLB [place] cott Interna l Medicin e Tm) [employer] ENEDINAB [place] ) OUTPATIENT [id number] back pain... [id number] IJEOMA AHN 06/13 Released w/o Limitations [employer] [place]S cott Interna l Medicin e Tm) [facility] [employer] [place] ) TELE CONSULT [id number] Lab SCOTTY HAGER 06/14 [facility] Medical Group [facility]ant ENEDINAB [place]S cott Interna l Medicin e Tm) [facility] [employer] [place] ) OUTPATIENT [id number] pain left shoulde r [phone] MIMIRANDALL [facility] 06/21 Released w/o Limitations [facility] [employer] [place]S cott Interna l Medicin e Tm) [facility] [employer] [place] ) TELE CONSULT [id number] xray result MIMIRANDALL [facility] 06/21 [facility]ant ENEDINAB ([facility]S cott Interna l Medicin e Tm) [facility] [employer] [place] ) OUTPATIENT [id number] f/u e.r visit IJEOMA AHN 06/28 Released w/o Limitations [facility] [employer] [place]S cott Interna l Medicin e Tm) [facility] [employer] [place] ) OUTPATIENT [id number] arm pain [phone] FARZAD RODRIGUEZ 09/19 Released w/o Limitations [employer] ([facility]S cott Interna l Medicin e Tm) [facility] [employer] [place] ) TELE CONSULT [id number] Referra l update needed/ Radhika/f xs CHELAGETACHEW Soledad 09/[address] [place] [address] Group Nishant [facility])(S cott Interna l Medicin e Tm) [address] [place] [address] N[facility]ant [facility])([facility] ) OUTPATIENT [id number] f/u from occupat ion therapy RANDALL LE 11/08 Released w/o Limitations [address] [place] [address] Group Nishant [facility])(S cott Interna l Medicin e Tm) [address] [place] [address] N[facility]ant [facility])([facility] ) TELE CONSULT [id number] POLO ROTHMAN 11/25 Referred for Appointment [address] [place] [address] Group Nishant [facility])(S cott Interna l Medicin e Tm) [address] [place] [address] N[facility]ant [facility])([facility] ) OUTPATIENT [id number] f/u lab IJEOMA AHN 12/05 Released w/o Limitations [address] [place] [address] Group Nishant [facility])(S cott Interna l Medicin e Tm) [address] [place] [address] N[facility]ant [facility])([facility] ) TELE CONSULT [id number] SCOTTY HAGER 01/[address] [place] [address] Group Nishant [facility])(S cott Interna l Medicin e Tm) [address] [place] [address] N[facility])([facility] ) OUTPATIENT [id number] Discuss recent labs IJEOMA AHN 02/11 Released w/o Limitations [address] [place] [address] Group Nishant [facility])(S cott Interna l Medicin e Tm) [address] [place] [address] N[facility])([facility] ) OUTPATIENT [id number] f/u and med refills IJEOMA AHN 08/31 Released w/o Limitations [address] [place] [address] Group Nishant [facility])(S cott Interna l Medicin e Tm) [address] [place] [address] N[facility]ant [facility])([facility] ) TELE CONSULT [id number] Notes Entered by: ABDIRASHID WU 02 Apr 2012 0957 ------- ------- ------- ------- -- Multipl e symptom s/Radhika / SCOTTY HAGER 04/[address] [place] [address] [facility]S cott Interna l Medicin e Tm) [address] [place] [address] [facility] ) OUTPATIENT [id number] c/o rhiniti s, cough, congest ion IJEOMA AHN 04/02 Released w/o Limitations [address] [place] [address] Nishant [facility])(S cott Interna l Medicin e Tm) [address] [place] [address] N[facility]ant [facility])([facility] ) TELE CONSULT [id number] Notes Entered by: MERYL JACOBSEN 10 May 2012 0849 ------- ------- ------- ------- -- E.R f/u - Radhika - [phone] SCOTTY HAGER 05/[address] [place] [address] [facility]S cott Interna l Medicin e Tm) [address] [place] [address] N[facility]ant [facility])([facility] ) OUTPATIENT [id number] f/u ER IJEOMA AHN 05/13 Released w/o Limitations [address] [place] [address] [facility]S cott Interna l Medicin e Tm) [address] [place] [address] N[facility]ant [facility])([facility] ) OUTPATIENT [id number] Right Knee Pain getting worse H# IJEOMA AHN 06/22 Released w/o Limitations [address] [place] [address] [facility]S cott Interna l Medicin e Tm) [address] [place] [address] N[facility]ant [facility])(Opt ometry) OUTPATIENT [id number] blurry vision CARMINE PETERS 06/25 Released w/o Limitations [address] [place] [address] Nishant ZARATE [facility])(O ptometr y) [address] [place] [address] Nishant [facility])([facility] ) TELE CONSULT [id number] Notes Entered by: ABDIRASHID WU 10 Aug 2012 0736 ------- ------- ------- ------- -- rash/Gr shaquille/618 .875.68 39 SCOTTY HAGER Jessica 08/[address] [place] [address])(S cott Interna l Medicin e Tm) [address] [place] [address])([facility] ) OUTPATIENT [id number] burning w/urina tion x 2 days [id number] MEG SALAS 02/18 Released w/o Limitations [address] [place] [address])(S cott Interna l Medicin e Tm) [address] [place] [address])([facility] ) TELE CONSULT [id number] Notes Entered by: ROQUE SALAS 02 Mar 2013 1009 ------- ------- ------- ------- -- study results ALICIAMUSHTAQCaro Bailey 03/[address] [place] [address])(S cott Interna l Medicin e Tm) [address] [place] [address])([facility] ) OUTPATIENT [id number] ER FU fell on ice, inujure d left knee [phone] MEG SALAS 04/15 Released w/o Limitations [address] [place] [address])(S cott Interna l Medicin e Tm) [address] [place] [address])([facility] ) OUTPATIENT [id number] annual checkup [id number] JAYJAY JOAQUIN V 01/30 Released w/o Limitations [address] [place] [address])(S cott Interna l Medicin e Tm) [address] [place] [address])([facility] ) TELE CONSULT [id number] Notes Entered by: CRISTOBAL SANFORD 02 Mar 2014 1122 ------- ------- ------- ------- -- Network Results -CARDIO LOGY 02/24/14 JAYJAY JOAQUIN V 03/[address] [place] [address])(S cott Interna l Medicin e Tm) [address] [place] [address])([facility] ) TELE CONSULT [id number] Notes Entered by: ANIL CARDOZA 30 Mar 2014 1128 ------- ------- ------- ------- -- Network Results - CARDIOL OGY- 02/24/14 ENOC FELICIANO 03/[address] [place] [address])(S cott Interna l Medicin e Tm) [address] [place] [address])([facility] ) TELE CONSULT [id number] Notes Entered by: ANIL CARDOZA 20 Apr 2014 1419 ------- ------- ------- ------- -- Network Results - CARDIOL OGY- 04/14/14 ENOC KATHLEEN 04/[address] [place] [address])(S cott Interna l Medicin e Tm) [address] [place] [address])([facility] ) OUTPATIENT [id number] f/u after cardiol ogy [id number] ENOC FELICIANO 04/20 Released w/o Limitations [address] [place] [address])(S cott Interna l Medicin e Tm) [address] [place] [address])([facility] ) TELE CONSULT [id number] Notes Entered by: ARMAND CURIEL 24 Apr 2014 1056 ------- ------- ------- ------- -- Pt called bernice dimas order for DEXA scan at [facility] appt. GETACHEW YORK 04/[address] [place] [address])(S cott Interna l Medicin e Tm) [address] [place] [address])([facility] ) TELE CONSULT [id number] Notes Entered by: EZIO CAICEDO 24 Apr 2014 1719 ------- ------- ------- ------- -- Lab test results ENOC KATHLEEN 04/[address] [place] [address] Group Nishant [facility])(S cott Interna l Medicin e Tm) [address] [place] [address] Group N[facility])([facility] ) OUTPATIENT [id number] F/U Cardiol ogrodríguez [facility] M 05/11 Released w/o Limitations [address] [place] [address] Group N[facility]ant [facility] [place] Interna l Medicin e Tm) [address] [place] [address] Group N[facility]ant [facility])([facility] ) OUTPATIENT [id number] f/u hypothy roidism [facility] 05/23 Released w/o Limitations [address] [place] [address] Group N[facility] ([facility] cott Interna l Medicin e Tm) [address] [place] [address] N[facility]ant [facility])([facility] ) TELE CONSULT [id number] Notes Entered by: EZIO CAICEDO 07 Jul 20141701 ------- ------- ------- ------- -- Lab tests from 07/08/19 15 CONSUELO WILCOX 07/[address] [place] [address] Group N[facility] ([facility]S cott Interna l Medicin e Tm) [address] [place] [address] N[facility]ant [facility])([facility] ) OUTPATIENT [id number] f/u thyroid s FRANNIE ENOC M 08/09 Released w/o Limitations [address] [place] [address] Group [facility] ([facility]S cott Interna l Medicin e Tm) [address] [place] [address] Group N[facility]ant [facility])([facility] ) TELE CONSULT [id number] Notes Entered by: EZIO CAICEDO M 24 Aug 20141701 ------- ------- ------- ------- -- Lab test results from 08/25/19 15 GETACHEW YORK 08/[address] [place] [address] Group [facility]ant B ([facility]S cott Interna l Medicin e Tm) [address] [place] [address] Group N[facility]ant [facility])([facility] ) OUTPATIENT [id number] left side of face twitchi ng/twin jono MARGARET RIVERO V 01/22 Released w/o Limitations [address] [place] [address])(S cott Interna l Medicin e Tm) [address] [place] [address])([facility] ) TELE CONSULT [id number] Notes Entered by: STEPHON WHITTINGTON 14 May 2016 1048 ------- ------- ------- ------- -- SX - Dizzy / Anxiety Issues / Vick / - sgj CONSUELO WILCOX 05/[address] [place] [address])(S cott Interna l Medicin e Tm) [address] [place] [address])([facility] ) OUTPATIENT [id number] Anxiety attacks MARGARET RIVERO V 05/15 Released w/o Limitations [address] [place] [address])(S cott Interna l Medicin e Tm) [address] [place] [address])([facility]) OUTPATIENT [id number] 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 EBONI Woodruff 05/20 Released w/o Limitations [address] [place] [address])([facility]) [address] [place] [address])([facility] ) OUTPATIENT [id number] St E Admit f/u overnig ht observa tion/L shoulde r pain per MARGARET Joshi V 07/18 Released w/o Limitations [address] [place] [address])(S cott Interna l Medicin e Tm) [address] [place] [address])([facility] ) TELE CONSULT [id number] Notes Entered by: Dion SHOOK 06 Aug 2016 1031 ------- ------- ------- ------- -- Network results Cardiol ogy 07/25/16 MARGARET MEADOWS V 08/[address] [place] [address] N[facility]ant [facility]S cott Interna l Medicin e Tm) [facility] Medical [facility] ) OUTPATIENT [id number] L arm pain, [phone] 9 MARGARET RIVERO V 04/23 Released w/o Limitations [address] [place] [address] N[facility])(S cott Interna l Medicin e Tm) [address] [place] [address] N[facility])([facility] ) OUTPATIENT [id number] f/u Cardio appt MARGARET RIVERO V 07/24 Released w/o Limitations [address] [place] [address] N[facility])(S cott Interna l Medicin e Tm) [address] [place] [address] N[facility])([facility] ) TELE CONSULT [id number] Notes Entered by: Jimbo COLEMAN 07 Oct 2017 1237 ------- ------- ------- ------- -- Aretha amos form/ POLO Reyes 10/07 Referred for Appointment [address] [place] [address] N[facility])(S cott Interna l Medicin e Tm) [address] [place] [address] N[facility])([facility] ) TELE CONSULT [id number] Notes Entered by: TIESHA CARRILLO 11 Nov 2017 1152 ------- ------- ------- ------- -- Stat Referra chatterjee Request (appt Nov)/Nilesh reyesowe/6 [phone] (ROSALIA Mcconnell 11/11 Immediate Referral [address] [place] [address] N[facility])(S cott Interna l Medicin e Tm) [address] [place] [address] [facility])([facility] ) OUTPATIENT [id number] 5 on/off dizines s/er/uc c/refus al/618- [phone] MARGARET RIVERO V 03/09 Released w/o Limitations [address] [place] [address] [facility]S cott Interna l Medicin e Tm) [address] [place] [address] N[facility])([facility] ) OUTPATIENT [id number] 7 constip ation with pain at rectum6 [phone] ELISABETH GREENFIELD 03/29 Released w/o Limitations [address] [place] [address] [facility])(S cott Interna l Medicin e Tm) [address] [place] [address] N[facility])([facility] ) OUTPATIENT [id number] Notes Entered by: CONSUELO WILCOX 28 Apr 2019 0732 ------- ------- ------- ------- -- F/U BP and constip ation SEMAJ VASQUEZ 04/27 Released w/o Limitations [address] [place] [address] [facility])(S cott Interna l Medicin e Tm) [address] [place] [address] N[facility])([facility] S II Test Nishant) TELE CONSULT [id number] Notes Entered by: SEMAJ VASQUEZ 11 May 2019 1255 ------- ------- ------- ------- -- BP Follow up SEMAJ VASQUEZ 05/[address] [place] [address] N[facility])([facility] II Test [facility]) [address] [place] [address])([facility] ) TELE CONSULT [id number] Notes Entered by: CUAUHTEMOC APARICIO 17 Apr 2020 1109 ------- ------- ------- ------- -- RX Refill- Med Bridge / Marino s/ Appt Sched/ - Son- CONSUELO Lowry 04/17 Medication Refill Forwarded [address] [place] [address] N[facility])(S cott Interna l Medicin e Tm) [address] [place] [address] N[facility])([facility] ) OUTPATIENT [id number] 4 virtual appt [id number] rx renwal/ f/u labs ELISABETH GREENFIELD 05/02 Released w/o Limitations [address] [place] [address] N[facility])(S cott Interna l Medicin e Tm) [address] [place] [address] N[facility])(Fam mojgan Med Tm B Non-AD BCC) TELE CONSULT [id number] Notes Entered by: Jimbo COLEMAN 14 Jun 2021 1046 ------- ------- ------- ------- -- pt present ed to my office with back pain RONEY RIDDLE 06/14 Referred for Appointment [address] [place] [address] [facility])(F amily Med Tm B Non-AD BCC) [address] [place] [address] N[facility])(Fam mojgan Med Tm B Non-AD BCC) OUTPATIENT [id number] 2 F2F/jean k pain YANDEL WATKINS 06/14 Released w/o Limitations [address] [place] [address] [facility])(F amily Med Tm B Non-AD BCC) [address] [place] [address])(Fam mojgan Med Tm B Non-AD BCC) TELE CONSULT [id number] Notes Entered by: YANDEL WATKINS 19 Jun 2021 1056 ------- ------- ------- ------- -- lab results YANDEL WATKINS 06/[address] [place] [address] [facility])(F amily Med Tm B Non-AD BCC) [address] [place] [address] N[facility])(Mdo tt [facility] Fam Res [place]) TELE CONSULT [id number] Notes Entered by: SANTO NASCIMENTO 11 Mar 2022 1048 ------- ------- ------- ------- -- ER Ref-Lab Test Req-SX- Jesenia-Chandana phillips Post extract carmella/ Natalie/ BERTRAM CENTENO 03/11 Referred- Emergency Department [address] [place] [address] N[facility])(S cott [facility] Fam Res Tm [place]) [address] [place] [address] [facility])(Sco tt [facility] Fam Res Tm [place]) OUTPATIENT [id number] F2F -bleedi ng from precedu re done 2 weeks ago STARR LYONS 03/13 Released w/o Limitations [address] [place] [address] N[facility]S cott [facility] [place]) [address] [place] [address] N[facility])(Sco tt [facility] [place]) TELE CONSULT [id number] Notes Entered by: LYNN GRACE 14 Mar 2022 1037 ------- ------- ------- ------- -- NETWORK RESULTS X2 SAWYER GALINDO 03/14 Released to Self Care [address] [place] [address] N[facility]ant Padmini [facility])(S cott [facility] [place]) [address] [place] [address] N[facility])(Mdo tt [facility] [place]) TELE CONSULT [id number] Notes Entered by: KRISTAL JOHNSON 17 Mar 2022 1243 ------- ------- ------- ------- -- Network Result - ED- Hyperte nsion 03/13/22 SAWYER GALINDO 03/17 Released to Self Care [address] [place] [address] N[facility])(S cott [facility] [place]) [address] [place] [address] N[facility] Padmini [facility])(Sco tt [facility] [place]) TELE CONSULT [id number] Notes Entered by: SALBADOR MICHELE 2022 0750 ------- ------- ------- ------- -- Sx- Sx Persist s, ER ERICKA/ NATALIE / BERTRAM CENTENO 03/19 Other Not Elsewhere Classified [address] [place] [address] N[facility])(S cott [facility] Res [facility] [place]) [id number] [facility] [id number] [facility] er for immuniz ation ORTIZPATRICIA CUEVAS 08/17 Discharge Disposition: Home or Self Care [id number] [facility]- [facility] Procedures Combined list of: 1) Procedures from Department of Veterans Affairs facilities going back up to thelast 18 months, not all VA non-surgical procedures are included; 2) All procedures from the Department of Defense facilities. Procedure Procedure Type Code Date Perfomer Comments Sourc e No data available for this section Ambulatory Pharmacy SELF-CARE EDUCATION PROVIDED TO PATIENT (HF) 2021 DoD TELE ASSESS & MGT SRV PROV QUAL NONPHYS HLTH CARE PRO TO EST PAT,PARENT,GUARD NOT ORIG REL ASSESS & MGT SRV PROV W/IN PREV 7 DAYS NOR LEAD ASSESS & MGT SRV/PX W/IN NXT 24 HR/SOON APT;5-10 MIN MED DIS 2021 DoD TELE ASSESS & MGT SRV PROV QUAL NONPHYS HLTH CARE PRO TO EST PAT,PARENT,GUARD NOT ORIG REL ASSESS & MGT SRV PROV W/IN PREV 7 DAYS NOR LEAD ASSESS & MGT SRV/PX W/IN NXT 24 HR/SOON APT;5-10 MIN MED DIS 2017 DoD TELE ASSESS & MGT SRV PROV QUAL NONPHYS HLTH CARE PRO TO EST PAT,PARENT,GUARD NOT ORIG REL ASSESS & MGT SRV PROV W/IN PREV 7 DAYS NOR LEAD ASSESS & MGT SRV/PX W/IN NXT 24 HR/SOON APT;5-10 MIN MED DIS 2017 DoD ELECTROCARDIOGRAM, ROUTINE ECG WITH AT LEAST 12 LEADS; WITH INTERPRETATION AND REPORT 2017 DoD TELE ASSESS & MGT SRV PROV QUAL NONPHYS HLTH CARE PRO TO EST PAT,PARENT,GUARD NOT ORIG REL ASSESS & MGT SRV PROV W/IN PREV 7 DAYS NOR LEAD ASSESS & MGT SRV/PX W/IN NXT 24 HR/SOON APT;5-10 MIN MED DIS 2016 DoD TELE ASSESS & MGT SRV PROV QUAL NONPHYS HLTH CARE PRO TO EST PAT,PARENT,GUARD NOT ORIG REL ASSESS & MGT SRV PROV W/IN PREV 7 DAYS NOR LEAD ASSESS & MGT SRV/PX W/IN NXT 24 HR/SOON APT;5-10 MIN MED DIS 2014 DoD FUNDUS PHOTOGRAPHY WITH INTERPRETATION AND REPORT 2012 DoD ELECTROCARDIOGRAM, ROUTINE ECG WITH AT LEAST 12 LEADS; INTERPRETATION AND REPORT ONLY 2010 DoD TELE ASSESS & MGT SRV PROV QUAL NONPHYS HLTH CARE PRO TO EST PAT,PARENT,GUARD NOT ORIG REL ASSESS & MGT SRV PROV W/IN PREV 7 DAYS NOR LEAD ASSESS & MGT SRV/PX W/IN NXT 24 HR/SOON APT;5-10 MIN MED DIS 2009 DoD TELE ASSESS & MGT SRV PROV QUAL NONPHYS HLTH CARE PRO TO EST PAT,PARENT,GUARD NOT ORIG REL ASSESS & MGT SRV PROV W/IN PREV 7 DAYS NOR LEAD ASSESS & MGT SRV/PX W/IN NXT 24H/SOON APT; 11-20 MIN MED DIS 2008 DoD INDIVIDUAL PSYCHOTHERAPY, INSIGHT ORIENTED, BEHAVIOR MODIFYING AND/OR SUPPORTIVE, IN AN OFFICE OR OUTPATIENT FACILITY, APPROXIMATELY 45 TO 50 MINUTES [id number] WITH THE PATIENT 2008 DoD INDIVIDUAL PSYCHOTHERAPY, INSIGHT ORIENTED, BEHAVIOR MODIFYING AND/OR SUPPORTIVE, IN AN OFFICE OR OUTPATIENT FACILITY, APPROXIMATELY 45 TO 50 MINUTES [id number] WITH THE PATIENT 2008 DoD PSYCHIATRIC DIAGNOSTIC INTERVIEW EXAMINATION 2008 DoD OPHTHALMOLOGICAL SERVICES: MEDICAL EXAMINATION AND EVALUATION WITH INITIATION OF DIAGNOSTIC AND TREATMENT PROGRAM; INTERMEDIATE, NEW PATIENT 2005 DoD IMMUNIZATION ADMINISTRATION (INCLUDES PERCUTANEOUS, INTRADERMAL, SUBCUTANEOUS, OR INTRAMUSCULAR INJECTIONS); 1 VACCINE (SINGLE OR COMBINATION VACCINE/TOXOID) 2005 DoD DOPPLER ECHOCARDIOGRAPHY, PULSED WAVE AND/OR CONTINUOUS WAVE WITH SPECTRAL DISPLAY (LIST SEPARATELY IN ADDITION TO CODES FOR ECHOCARDIOGRAPHIC IMAGING); COMPLETE 2004 DoD EXTERNAL ELECTROCARDIOGRAPHIC RECORDING UP TO 48 HOURS BY CONTINUOUS RHYTHM RECORDING AND STORAGE; REVIEW AND INTERPRETATION BY A PHYSICIAN OR OTHER QUALIFIED HEALTH ADJUNCT TRAINER 2004 [facility] DOPPLER ECHOCARDIOGRAPHY COLOR FLOW VELOCITY MAPPING (LIST SEPARATELY IN ADDITION TO CODES FOR ECHOCARDIOGRAPHY) 2004 DoD EXTERNAL ELECTROCARDIOGRAPHIC RECORDING UP TO 48 HOURS BY CONTINUOUS RHYTHM RECORDING AND STORAGE; RECORDING (INCLUDES CONNECTION, RECORDING, AND DISCONNECTION) 2004 DoD CARDIOVASCULAR STRESS TEST USING MAXIMAL OR SUBMAXIMAL TREADMILL OR BICYCLE EXERCISE,CONTINUOUS ELECTROCARDIOGRAPHIC MONITORING,AND/OR PHARMACOLOGICAL STRESS;W SUPERVISION,INTERPRETAT ION AND REPORT 2003 DoD OTHER CARDIOVASCULAR STRESS TEST 2003 DoD CARDIOVASCULAR STRESS TEST USING MAXIMAL OR SUBMAXIMAL TREADMILL OR BICYCLE EXERCISE,CONTINUOUS ELECTROCARDIOGRAPHIC MONITORING,AND/OR PHARMACOLOGICAL STRESS;W SUPERVISION,INTERPRETAT ION AND REPORT 2003 DoD CANNULA, NASAL 2003 DoD ELECTROCARDIOGRAM, ROUTINE ECG WITH AT LEAST 12 LEADS; WITH INTERPRETATION AND REPORT 2002 [facility] IMMUNIZATION ADMINISTRATION (INCLUDES PERCUTANEOUS, INTRADERMAL, SUBCUTANEOUS, OR INTRAMUSCULAR INJECTIONS); 1 VACCINE (SINGLE OR COMBINATION VACCINE/TOXOID) 2002 [facility] Non-Physician Phone Call To Patient/Provider Brief (5-10min) Non-Physician Phone Call To Patient/Provider Brief (5-10min) [id number] 2017 ROSALIA KING [facility] Non-Physician Phone Call To Patient/Provider Brief (5-10min) Non-Physician Phone Call To Patient/Provider Brief (5-10min) [id number] 2017 POLO ROTHMAN [facility] ECG 12-Lead With Interpretation And Report ECG 12-Lead With Interpretation And Report [id number] 2017 MARGARET RIVERO V [facility] Non-Physician Phone Call To Patient/Provider Brief (5-10min) Non-Physician Phone Call To Patient/Provider Brief (5-10min) [id number] 2016 CONSUELO WILCOX [facility] Non-Physician Phone Call To Patient/Provider Brief (5-10min) Non-Physician Phone Call To Patient/Provider Brief (5-10min) [id number] 2014 GETACHEW YORK [facility] Fundus Photography Fundus Photography [id number] 2012 CARMINE PETERS Visual Swartz Test Intermediate Examination Visual Swartz Test Intermediate Examination [id number] 2012 CARMINE PETERS [facility] Scanning Computerized Ophthalmic Diagnostic Imaging Optic Nerve Scanning Computerized Ophthalmic Diagnostic Imaging Optic Nerve [id number] 2012 CARMINE PETERS Scanning Computerized Ophthalmic Diagnostic Imaging Retina Scanning Computerized Ophthalmic Diagnostic Imaging Retina [id number] 2012 CARMINE PETERS Ophthalmological New Patient Start Comprehensive Care Ophthalmological New Patient Start Comprehensive Care [id number] 2012 CARMINE PETERS Determination Of Refractive State Determination Of Refractive State [id number] 2012 CARMINE PETERS [facility] ECG Interpretation And Report Only ECG Interpretation And Report Only [id number] 2010 CATHERINE ZACARIAS [facility] Non-Physician Phone Call To Patient/Provider Brief (5-10min) Non-Physician Phone Call To Patient/Provider Brief (5-10min) [id number] 2009 STEPHEN FREEDMAN [facility] Non-Physician Phone Call To Pt/Provider Intermed (11-20 min) Non-Physician Phone Call To Pt/Provider Intermed (11-20 min) [id number] 2008 NANY STEPHEN L [facility] Psychiatric Therapy Individual Approximately 45-50 Minutes Psychiatric Therapy Individual Approximately 45-50 Minutes [id number] 2008 DOC GARG [facility] Psychiatric Therapy Individual Approximately 45-50 Minutes Psychiatric Therapy Individual Approximately 45-50 Minutes [id number] 2008 DOC GARGN [facility] Psychiatric Evaluation Comprehensive Examination Psychiatric Evaluation Comprehensive Examination [id number] 2008 DOC GARG SAVI [facility] Ophthalmological New Patient Start Intermediate Level Care Ophthalmological New Patient Start Intermediate Level Care [id number] 2005 CARISSA ESPINO [facility] Pneumococcal Polysaccharide Vaccine Adult Dos For Intramusc Pneumococcal Polysaccharide Vaccine Adult Dos For Intramusc 48956 2005 TAD JOSEPH [facility] Immunization Administration One Vaccine Immunization Administration One Vaccine [id number] 2005 TAD JOSEPH [facility] Non-Physician Phone Call To Patient/Provider Brief (5-10min) Non-Physician Phone Call To Patient/Provider Brief (5-10min) [id number] RONEY RIDDLE [facility] Social History Combined list of available smoking, tobacco, and other social history from Department of Defense and Veterans Affairs facilities. Social History Type Response Date Comment Sour e This section is an empty social history section. DoD Assessment and Plan Combined list of future care activities from Department of Defense and Veterans Affairs facilities (e.g., assessment and plan notes, appointments, orders, and referrals). Additional future care activities may be listed in the Plan of Care section. Result Assessment and Plan Date Source Assessment and Plan Extracted from:Title : Immuns: PCV20 Author: TANG JAMESON Date: 08/18/23 Adult Screening Questionnaire 1. Are you sick today? No 2. Do you have allergies to medication food, a vaccine component, or latex? Yes, see allergy section 3. Have you ever had a serious reaction after receiving a vaccination? No 4. Do you have a detention health problem with heart, lung, kidney, metabolic disease (e.g., diabetes), asthma, a blood disorder, no spleen, compliment component deficiency, a cochlear implant, or a spinal fluid leak? No Are you on medical terminologist aspirin therapy? No 5. Do you, or a close family member, have cancer, leukemia, HIV/AIDS, or any other immune system problems? No 6. In the past 3 months, have you taken medications, that effect your immune system, such as prednisone, other steroids, or anti-cancer drugs; drugs for treatment of Rheumatoid Arthritis, Crohn's disease, or psoriasis; or have you had radiation treatment? No 7. Have you had a seizure or a brain or other nervous system problems? No 8. During the past year, have you received a transfusion of blood or blood products, or been given immune (gamma) globulin, or an anti-viral drug? No 9. Have you received any vaccinations in the past month? No 10. For women, are you or is there a chance that you could become in the next month? N/A pneumococcal 20-valent conjugate vaccine: 0.5 mL (08/18/23 14:41:00) Diagnosis: 1. Vaccination given Comment: Ordered: Unlisted E&M Service [id number]; 08/18/2023 14:40:00 CDT by ORTIZ WATTS MD Other status: Prevnar 20; 0.5 mL, IntraMuscular, Suspension-Injection, Vaccine, First Dose: 08/18/2023 14:40:00 CDT, 08/18/2023 14:40:00 CDT (Completed) by ORTIZ WATTS MD Imadm Prq Id Subq/Im Njxs 1 Vaccine [id number]; 08/18/2023 14:40:00 CDT (Completed) by ORTIZ WATTS MD End of Orders More details of the vaccination administered can be found in the patient s Immunization History under the Immunizations tab. 06/14/2024 [address] [place] [address] Functional Status Combined list of recent functional and cognitive assessments recorded at Department of Defense and Veterans Affairs (VA).VA Functional [place] Measurement (FIM) Scale: 1 = Total Assistance (Subject = 0% +), 2 = Maximal Assistance (Subject = 25% +), 3 = Moderate Assistance (Subject = 50% +), 4 = Minimal Assistance (Subject = 75% +), 5 = Supervision, 6 = Modified [place] (Device), 7 = Complete [place] (Timely, Safely). Assessment Date/Time Source Assessment Type Assessment Skill Assessment Score Assessment Details No data available for this section
[2024-06-14 10:16] LABS: Basophils Percent Auto 0.6 % (0.2-1.2); Eosinophils Percent Auto 0.8 % (0-4.4); Hematocrit 43.4 % (37.0-47.0); Hemoglobin 13.7 g/dL (12.0-15.0); Immature Granulocyte Absolute 0.01 K/mm3 (0.00-0.031); Immature Granulocyte Percent A 0.2 % (0-0.5); Immature Platelet Fraction Pct 4.6 % (0.9-11.2); Lymphocytes Absolute Auto 1.46 K/mm3 (0.9-3.2); Lymphocytes Percent Auto 30.4 % (18.3-44.2); Mean Corpuscular HGB Conc 31.6 g/dl (32-36); Mean Corpuscular Hemoglobin 30.2 pg (26-34); Mean Corpuscular Volume 95.8 fl (80-100); Mean Platelet Volume 11.1 fl (7.4-10.4); Monocytes Absolute Auto 0.4 K/mm3 (0.1-0.6); Neutrophils Absolute Auto 2.8 K/mm3 (1.3-6.7); Platelet Count Result 124 k/mm3 (150-375); Red Blood Count 4.53 M/mm3 (4.2-5.4); Red Cell Distribution Width 13.9 % (11.5-14.5); White Blood Count 4.8 K/mm3 (4.5-10.0)
[2024-06-14 10:24] LABS: Hemoglobin A1C 5.1 % (<5.7)
[2024-06-14 10:26] LABS: Alanine Aminotransferase 32 U/L (6-35); Albumin Level 4.7 g/dL (3.5-5.1); Alkaline Phosphatase 70 U/L (38-126); Anion Gap 9 mmol/L (4-12); Aspartate Amino Transferase 60 U/L (14-36); Bilirubin,Total 1.3 mg/dL (0.2-1.3); Blood Urea Nitrogen 18 mg/dL (7-17); Calcium 9.3 mg/dL (8.4-10.2); Carbon Dioxide 28 mmol/L (22-30); Chloride 103 mmol/L (98-107); Cholesterol 208 mg/dL (0-200); Estimated Glomerular Filt Rate > 60; Glucose 102 mg/dL (65-110); HDL Direct 93 mg/dL; Potassium 3.9 mmol/L (3.4-5.0); Sodium 140 mmol/L (137-145); Triglycerides 108 mg/dL (<150)
[2024-06-14 10:37] LABS: LDL Cholesterol Direct 74 mg/dL
[2024-06-14 10:43] LABS: Vitamin D 25 Hydroxy 51.2 ng/mL
[2024-06-14 11:12] LABS: Free T4 Free Thyroxine 0.82 ng/dL (0.78-2.19)
== END 2024-06-14 09:24 | disposition home or self-care (01) ==
LOC: ANHLAB 09:25
PROVIDERS: PCP Family Medicine; Referring Provider Family Medicine; Visit Provider Internal Medicine Endocrinology, Diabetes & Metabolism
DX: I47.10 Supraventricular tachycardia, unspecified (principal); Z00.00 Encounter for general adult medical examination without abnormal findings; E03.9 Hypothyroidism, unspecified; I10 Essential (primary) hypertension; E78.5 Hyperlipidemia, unspecified; E55.9 Vitamin D deficiency, unspecified; R73.9 Hyperglycemia, unspecified
CPT/HCPCS: 36415; 80053; 80061; 82306; 83036; 84439; 84443; 85025; 85055

== ENCOUNTER 2025-01-02 08:04 | Outpatient (CLI) | payer MEDICARE, OTHER, SELFPAY ==
--- OUTSIDE RECORDS SUMMARY | 2025-01-02 08:12 | XMS_ITS | Encounter Summary ---
Author Organization [facility] Address [facility] [place] [address] Care Team Providers Care Shield Runner Name Role Phone Zachary Saleh MD Unavailable [phone] Catherine Rivas MD, Vanessa Primary Care Provider [phone] Jose Joseph MD Primary Care Provider Unavailable Hermann Aquino DO Primary Care Provider [phone] Encounter Details Date Type Department Care Team (Late st Contact Info) Description 07/03/2016 Abstract [facility] AT [address] [address] Fani Corral MA Social History Tobacco Use Types Packs/Day Years Used Date Smoking Tobacco: Smoker, Current Status Unknown Comments Unknown Sex and Gender Information Value Date Recorded Sex Assigned at Not on file Legal Sex Female 11:22 PM CDT Gender Identity Not on file Sexual Orientation Not on file documented as of this encounter Plan of Treatment Not on file documented as of this encounter Procedures Procedure Name Priority Date/Time Associated Diagnosis Comments CBC (OUTSIDE LAB) Routine 01/31/2014 COMPREHENSIVE METABOLIC PANEL Routine 01/31/2014 LIPID PANEL Routine 01/31/2014 documented in this encounter Results * LIPID PANEL (01/31/2014) 01/31/2014 [facility] Edited Resul t - Final * COMPREHENSIVE METABOLIC PANEL (01/31/2014) 01/31/2014 us Doc [facility] Edited Resul t - Final * CBC (OUTSIDE LAB) (01/31/2014) 01/31/2014 us Doc [facility]-OUTSIDE/ABSTRACTED Edite d Result - Final documented in this encounter Visit Diagnoses Not on filedocumented in this encounter Care Teams Shield Runner Relationship Specialty Start Date End Date Vanessa Alexander MD [phone] (Work) PCP - General GRAVITY PROSPECTING OBSERVER 07/23/16 03/12/22 Jose Spann MD PCP - General 07/02/16 07/22/16 Hermann Aquino DO [address] [phone] PCP - General FAMILY PRACTICE 03/13/22 Zachary Saleh MD [place] Power Shovel Operator CARDIOVASCULAR DISEASE 02/10/16 documented as of this encounter
--- OUTSIDE RECORDS SUMMARY | 2025-01-02 08:12 | XMS_ITS | Clinical Summary ---
Author Organization [facility] [employer] Address [address] [place] [address] Care Team Providers Care Abap Developer Name Role Phone [address] Primary Care Prov ider Source Comments [facility],non-owned Affiliates and Associated Physician Practices is amultiple site organization consisting of ambulatory clinics and hospital sitesin [place], [place] and [place]. This disclosure is being madepursuant to the Care Everywhere program and may not contain all information available regarding this patient. 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 Gender Identity Not on file Sexual Orientation [...] 7:33 AM CDT Height 160 cm (5' 3) 06/06/2021 7:33 AM CDT Body Mass Index 20.37 06/06/2021 7:33 AM CDT Plan of Treatment Health Maintenance Due Date Last Done Comments BONE DENSITY TESTING 1935 DTAP/TDAP/TD VACCINES (1 - Tdap) 1954 PNEUMOCOCCAL VACCINE 50+ (1 of 1 - PCV) 1985 ZOSTER VACCINE (1 of 2) 1985 Respiratory Syncytial Virus (RSV) Vaccine Pt: or over 60 yrs (1 - 1-dose 75+ series) 2010 DEPRESSION SCREENING 02/10/2024 COVID-19 VACCINE (2024- season) 2024 02/18/2021, 04/24/2020, 04/03/2020 INFLUENZA VACCINE (#1) 2024 , 11/11/2019, 12/22/2018, Additional history exists HEPATITIS B [...] age to complete this topic Insurance MEDICARE [facility] Care Teams Abap Developer Relationship Specialty Start Date End Date [facility], [facility] [address], [place] [address] PCP - General Family Medicine 06/06/21
--- OUTSIDE RECORDS SUMMARY | 2025-01-02 08:12 | XMS_ITS | Encounter Summary ---
Author Organization [facility] Address [address] [place] [address] Care Team Providers Care Instructor Private Name Role Phone Zachary Saleh MD Unavailable [phone] Catherine Rivas MD, Vanessa Primary Care Provider [phone] Hermann Aquino DO Primary Care Provider [phone] Encounter Details Date Type Department Care Team (Late st Contact Info) Description 07/28/2016 Abstract [facility] AT [address] [address] Fani Corral MA Social History Tobacco Use Types Packs/Day Years Used Date Smoking Tobacco: Every Day Smokeless Tobacco: Never Comments:1 pack q 3 day Alcohol Use Standard Drinks/Week Comments No 0 (1 standard drink = 0.6 oz pur e alcohol) Comments Unknown Sex and Gender Information Value Date Recorded Sex Assigned at Not on file Legal Sex Female 11:22 PM CDT Gender Identity Not on file Sexual Orientation Not on file Occupation Industry Job Start Date Job End Date Not on file Not on file Not on file Not on file documented as of this encounter Plan of Treatment Not on file documented as of this encounter Procedures Procedure Name Priority Date/Time Associated Diagnosis Comments THYROXINE, FREE (FT4) Routine 07/03/2016 THYROID STIM HORMONE TSH Routine 07/03/2016 CBC (OUTSIDE LAB) Routine 07/02/2016 BNP Routine 07/02/2016 COMPREHENSIVE METABOLIC PANEL Routine 07/02/2016 LIPID PANEL Routine 07/02/2016 CK (CPK) Routine 07/02/2016 documented in this encounter Results * THYROXINE, FREE (FT4) (07/03/2016) FREE T4 0.90 07/03/2016 us Doc [facility] Final Result * THYROID STIM HORMONE, TSH (07/03/2016) Pathologist [facility] TSH 3.39 07/03/2016 us Doc [facility] Final Result * BNP (07/02/2016) Pathologist [facility] B TYPE NATRIURETIC PEPTIDE 115 07/02/2016 us Doc [facility] Final Result * COMPREHENSIVE METABOLIC PANEL (07/02/2016) Pathologist [facility] SODIUM S/P/B 142 POTASSIUM S/P/B 4.0 CO2 26 CHLORIDE S/P/B 105 GLUCOSE 105 CALCIUM S/P/B 9.5 BUN 12 CREATININE S/P/B 0.59 0.5 - 1.0 EGFR AFR. AMER. >60 <=90 EGFR NON-AFR. AMER. >60 <=90 ALKALINE PHOSPHATASE S/P/B 57 ALT 19 AST 33 BILIRUBIN TOTAL S/P/B 0.5 ALBUMIN S/P/B 4.3 3.5 - 5.0 TOTAL PROTEIN S/P/B 7.0 GLOBULIN 2.7 07/02/2016 us Doc [facility] Final Result * CK (CPK) (07/02/2016) CPK 58 07/02/2016 us Doc [facility] Final Result * LIPID PANEL (07/02/2016) CHOLESTEROL 211 HDL 59 TRIGLYCERIDES 105 NON HDL CHOLESTEROL 152 LDL (CALCULATED) 131 07/02/2016 us Doc [facility] Edited Resul t - Final * CBC (OUTSIDE LAB) (07/02/2016) Pathologist [facility] WBC 4.3 HGB 13.1 HCT 39.3 PLT 129 07/02/2016 us Doc [facility]-OUTSIDE/ABSTRACTED Final Result documented in this encounter Visit Diagnoses Not on filedocumented in this encounter Care Teams Instructor Private Relationship Specialty Start Date End Date Vanessa Alexander MD [phone] (Work) PCP - General PEOPLESOFT CONSULTANT 07/23/16 03/12/22 Hermann Aquino DO [address] [phone] PCP - General FAMILY PRACTICE 03/13/22 Zachary Saleh MD [place] Account Installation Specialist CARDIOVASCULAR DISEASE 02/10/16 documented as of this encounter
--- OUTSIDE RECORDS SUMMARY | 2025-01-02 08:12 | XMS_ITS | Clinical Summary ---
Author Organization [facility] Address [address] [place] [address] Care Team Providers Care Receiver Stocker Name Role Phone Zachary Saleh MD Unavailable [phone] Hermann Aquino DO Primary Care Provider [phone] Allergies Active Allergy Reactions Criticality Noted Date Comments Penicillins Rash Low 07/25/2016 Medications ALPRAZolam 0.25 MG tablet Take 1 tablet by mouth 2 (two) times daily. 05/10/2012 Active cetirizine 10 MG tablet Take 1 tablet by mouth daily. 05/10/2012 Active nitroglycerin 0.[address] 1 tablet (0.4 mg total) under the tongue every 5 (five) minutes as needed for Chest Pain (If taking 3rd dose, contact 911.). 03/30/2018 Active simvastatin 20 MG tablet Take 1 tablet (20 mg total) by mouth nightly at bedtime. 90 tablet 3 03/30/2018 Active lisinopril 5 MG tablet Take 1 tablet (5 mg total) by mouth daily. 90 tablet 3 06/14/2018 Active atenolol (TENORMIN) 25 MG tablet Take 2 tablets (50 mg total) by mouth daily. 30 tablet 03/13/2022 Active Active Problems Problem Noted Date Diagnosed Date Atherosclerosis of aorta 03/31/2018 On statin therapy 03/31/2018 Vertigo 05/19/2017 Essential hypertension PSVT (paroxysmal supraventricular tachycardia) Palpitations Resolved Problems Problem Noted Date Diagnosed Date Resolved Date Bereavement 07/25/2016 03/31/2018 Family History Medical History Relation Comments Negative for CAD Other Relation Status Comments Other Social History Tobacco Use Types Packs/Day Years Used Date Smoking Tobacco: Former Cigarettes Q uit: 08/09/2021 Smokeless Tobacco: Never Tobacco Cessation:Counseling Given: Not Answered Comments:1 pack q 3 day Alcohol Use Standard Drinks/Week Comments No 0 (1 standard drink = 0.6 oz pur e alcohol) Comments No Sex and Gender Information Value Date Recorded Sex Assigned at Not on file Legal Sex Female 11:22 PM CDT Gender Identity Not on file Sexual Orientation Not on file Occupation Industry Job Start Date Job End Date Not on file Not on file Not on file Not on file Last Filed Vital Signs Vital Sign Reading Time Taken Comments Blood Pressure 176/84 03/13/2022 5:53 PM CLOUD SUBJECT MATTER EXPERT Provider aware of BP. Ok to D/C pt Pulse 64 03/13/2022 5:53 PM CLOUD SUBJECT MATTER EXPERT Temperature 35.4 C (95.7 F) 03/13/2022 2:30 PM CLOUD SUBJECT MATTER EXPERT Respiratory Rate 18 03/13/2022 5:53 PM CLOUD SUBJECT MATTER EXPERT Oxygen Saturation 99% 03/13/2022 5:5 3 PM CLOUD SUBJECT MATTER EXPERT Inhaled Oxygen Concentration - - Weight 50.8 kg (112 lb) 03/13/2022 2:30 PM CLOUD SUBJECT MATTER EXPERT Height 160 cm (5' 3) 03/13/2022 2:30 PM CLOUD SUBJECT MATTER EXPERT Body Mass Index 19.84 03/13/2022 2:30 PM CLOUD SUBJECT MATTER EXPERT Plan of Treatment Health Maintenance Due Date Last Done Comments ASCVD Statin 1935 DTaP, Tdap and Td Vaccines (1 - Tdap) 1954 Pneumococcal Vaccine: 50+ Years (1 of 1 - PCV) 1985 Zoster Vaccines (1 of 2) 1985 Annual Medicare Wellness Visit 2000 RSV Immunization or 60+ Years (1 - 1-dose 75+ series) 2010 ASCVD LDL 07/03/2017 07/03/2016, 07/02/2016 COVID-19 Vaccine ( - season) 2024 02/18/2021, 04/24/2020, 04/03/2020 Influenza Adult (#1) 2024 12/07/2021, 11/12/2020, 11/11/2019, Additional history exists Hepatitis A Vaccines Aged Out No long er eligible based on patient's age to complete this topic Meningococcal B Vaccine Aged Out No l onger eligible based on patient's age to complete this topic Meningococcal Vaccine Aged Out No clarita rosalinda eligible based on patient's age to complete this topic RSV Immunizations Under 20 Months Aged Out No longer eligible based on patient's age to complete this topic Procedures Procedure Name Priority Date/Time Associated Diagnosis Comments LIPID PANEL Routine 07/03/2016 11:16 AM CDT from Last 3 Months or Most Recently Relevant to Health Maintenance Results * (ABNORMAL) LIPID PANEL (07/03/2016 11:16 AM CDT) CHOLESTEROL 211(H) <200 MG/DL 07/03/2016 11:53 AM T [facility] Comment: NOTE: Acetaminophen, N Acetyl p benzoquinone imine (NAPQI), N acetylcysteine (NAC), Metamizole, 4 Aminoantipyrine (4 AAP) and 4 Methylamino antipyrine (4 MAP) at high concentrations can cause falsely low results on Lactate, Uric Acid, Cholesterol, Triglyceride, HDL, and Direct LDL. TRIGLYCERIDES 105 <150 MG/DL 07/03/2016 11:53 AM T [facility] HDL 59(L) >59 MG/DL 07/03/2016 11:53 AM T [facility] LDL (CALCULATED) 131(H) <100 MG/DL 07/03/2016 11:53 AM T [facility] NON HDL CHOLESTEROL 152(H) <130 MG/DL 07/03/2016 11:53 AM T [facility] Comment: NOTE: WHEN THE TRIGLYCERIDES ARE >200 mg/dL, NON HDL C IS A SECONDARY TARGET OF THERAPY, WITH A GOAL 30 mg/dL HIGHER THAN THE IDENTIFIED LDL C GOAL. CHOL/HDL RATIO 3.6 0.0 - 4.5 07/03/2016 11:53 AM T [facility] VLDL CALCULATION 21 5 - 55 MG/DL 07/03/2016 11:53 AM T [facility] LIPID INTERPRETATION 07/03/2016 11:53 AM CDT [facility] Comment: NIH CONCENSUS REPORT RECOMMENDATIONS: ADULT CHILD LOW RISK: CHOLESTEROL <200 <170 TRIGLYCERIDE <150 --- HDL >=60 --- LDL <100 <110 BORDERLINE: CHOLESTEROL 200-239 170-199 TRIGLYCERIDE 150-199 --- HDL 40-59 --- LDL 100-159 110-129 HIGH RISK: CHOLESTEROL >=240 >=200 TRIGLYCERIDE >=200 --- HDL <40 --- LDL >=160 >=130 07/03/2016 11:1 6 AM CDT 07/03/2016 11:19 AM CDT us Generic Conversion Md [facility] Final R esult Performing Organization Address City/State/[facility] Co de Phone Number [facility] [address] [place] [address], from Last 3 Months or Most Recently Relevant to Health Maintenance Insurance [facility] MEDICARE MEDICARE [employer] Care Teams Receiver Stocker Relationship Specialty Start Date End Date Hermann Aquino DO 3 [facility] [address] [place] [phone] PCP - General FAMILY PRACTICE 03/13/22 Zachary Saleh MD [employer] Plant Operator CARDIOVASCULAR DISEASE 02/10/16
[2025-01-02 13:35] LABS: Alanine Aminotransferase 55 U/L (6-35); Albumin Level 4.7 g/dL (3.5-5.1); Alkaline Phosphatase 82 U/L (38-126); Anion Gap 8 mmol/L (4-12); Aspartate Amino Transferase 102 U/L (14-36); Bilirubin,Total 1.1 mg/dL (0.2-1.3); Blood Urea Nitrogen 18 mg/dL (7-17); Calcium 9.1 mg/dL (8.4-10.2); Carbon Dioxide 28 mmol/L (22-30); Chloride 106 mmol/L (98-107); Estimated Glomerular Filt Rate > 60; Glucose 76 mg/dL (65-110); Potassium 4.4 mmol/L (3.4-5.0); Sodium 142 mmol/L (137-145); Total Protein 8.5 g/dL (6.3-8.2)
[2025-01-02 14:06] LABS: Free T4 Free Thyroxine 1.02 ng/dL (0.78-2.19)
[2025-01-02 14:20] LABS: Thyroid Stimulating Hormone 4.980 uIU/mL (0.465-4.680); Total Triiodothyronine (T3) 1.34 NG/ML (0.82-1.58)
[2025-01-02 14:43] LABS: Vitamin B12 561.0 pg/mL (239-931)
== END 2025-01-02 08:05 | disposition home or self-care (01) ==
PROVIDERS: PCP Family Medicine; Visit Provider Family Medicine
DX: E03.9 Hypothyroidism, unspecified (principal); I10 Essential (primary) hypertension; E53.8 Deficiency of other specified B group vitamins
CPT/HCPCS: 36415; 80053; 82607; 84439; 84443; 84480